=== PATIENT | male | born 1970 | race Caucasian/White ===

== ENCOUNTER 2019-01-10 18:54 | Emergency (ER) | payer OTHER ==
[2019-01-10 19:25] VITALS: BP 140/85; PULSE 74; TEMP 98.9; BMI 25.8
[2019-01-10] MEDS ORDERED: IBUPROFEN 600 MG TABLET (FP) PO ONE ×2 (19:31→19:33)
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
== END 2019-01-10 20:27 | disposition home or self-care (01) ==
LOC: FER 18:54
DX: S39.012A Strain of muscle, fascia and tendon of lower back, initial encounter (principal); V43.52XA Car driver injured in collision with other type car in traffic accident, initial encounter; Y93.89 Activity, other specified; Y92.410 Unspecified street and highway as the place of occurrence of the external cause
CPT/HCPCS: 72050-TC-FY; 72070-TC-FY; 72100-TC-FY; 73070-TC-RT-FY; 99281-25